=== PATIENT | male | born 1985 | race Caucasian/White ===

== ENCOUNTER 2021-09-02 19:01 | Outpatient (REF) | payer OTHER, SELFPAY ==
[2021-09-02 21:16] LABS: ESR 3 mm/hr (0-15)
[2021-09-02 21:28] LABS: C-Reactive Protein < 0.05 mg/dL (0.0-0.3)
[2021-09-03 22:31] LABS: Rheumatoid Factor <8.6 IU/mL (<12.0)
[2021-09-05 14:17] LABS: ANA Interpretation Negative (Negative)
== END 2021-09-02 19:02 | disposition home or self-care (01) ==
LOC: NCHCN 19:01
PROVIDERS: Visit Provider Nurse Practitioner Family
DX: R53.83 Other fatigue (principal)
CPT/HCPCS: 85652; 86038; 86140; 86431

== ENCOUNTER 2025-05-06 13:17 | Outpatient (REF) | payer OTHER, SELFPAY ==
[2025-05-06 21:25] LABS: Abs Immature Grans 0.01 10^3/uL (0.0-0.06); HCT 42.3 % (40.0-50.0); HGB 13.7 g/dL (13.5-17.5); Immature Grans % 0.2 %; MCH 29.7 pg (27.0-33.0); MCHC 32.4 % (32.0-36.0); MCV 92 fL (80-95); MPV 9.6 fL (8.0-11.0); Platelet Count 212 10^3/uL (130-400); RBC 4.62 10^6/uL (4.36-5.78); RDW 12.3 % (11.8-14.1); RDW-SD 41.1 fL; WBC 4.69 10^3/uL (4.4-10.8)
[2025-05-06 21:51] LABS: ALT 26 U/L (16-63); AST 18 U/L (15-37); Albumin 4.4 g/dL (3.4-5.0); Alkaline Phosphatase 64 U/L (46-116); Anion Gap 7.8 mmol/L (3-11); BUN 18 mg/dL (7-18); Bilirubin, Total 0.7 mg/dL (0.2-1.0); CO2 32.2 mmol/L (21.0-32.0); Calcium 9.3 mg/dL (8.5-10.1); Calculated LDL 141 mg/dL (<100); Chloride 101 mmol/L (98-107); Cholesterol 228 mg/dL (<200); Estimated GFR 111.42 (mL/min/1.73m2); Glucose 89 mg/dL (74-106); HDL Cholesterol 70 mg/dL (>or=40); Potassium 3.9 mmol/L (3.5-5.1); Sodium 141 mmol/L (136-145); TSH (W/Ref FT4) 1.53 uIU/mL (0.36-3.74); Total Protein 7.8 g/dL (6.4-8.2); Triglyceride 85 mg/dL (<150)
== END 2025-05-06 13:18 | disposition home or self-care (01) ==
LOC: NCHCN 13:17
PROVIDERS: Visit Provider Nurse Practitioner Family
DX: Z00.00 Encounter for general adult medical examination without abnormal findings (principal); R53.83 Other fatigue
CPT/HCPCS: 80053; 80061; 84443; 85025